=== PATIENT | female | born 1955 | race American Indian/Alaskan Native ===

== ENCOUNTER 2021-09-18 17:01 | Emergency (ER) | payer MEDICARE ==
[2021-09-18 18:11] LABS: Basophils # (Auto) 0.1 K/mm3 (0.0-0.1); Basophils % (Auto) 0.9 % (0.0-1.8); Eosinophils # (Auto) 0.1 K/mm3 (0.0-0.4); Eosinophils % (Auto) 1.3 % (0.0-4.3); Hematocrit 39.8 % (30.3-42.9); Hemoglobin 13.4 gm/dl (10.1-14.3); Lymphocytes # (Auto) 2.5 K/mm3 (1.2-5.4); Lymphocytes % (Auto) 36.4 % (13.4-35.0); Mean Corpuscular HGB Conc 34 % (30-34); Mean Corpuscular Volume 87 fl (79-97); Monocytes # (Auto) 0.5 K/mm3 (0.0-0.8); Platelet Count 240 K/mm3 (140-440); Red Blood Count 4.57 M/mm3 (3.65-5.03)
--- NOTE | 2021-09-18 18:20 | Emergency Department Report ---
HPI - General Chief Complaint: Dizziness Time Seen by Provider: 09/18/21 17:34 - HPI HPI: Room 36 The patient is a 66-year-old female present with a chief complaint of muscle spasms, dark urine, pain in kidney and headache. The patient states for the p ast 2 to 3 weeks she has had intermittent spasms in her bilateral flanks and abdomen. Patient also complains of spasms in both of her legs. Patient states she has noticed decreased urinary output for the past 2 days and for the past 3 nights she noticed her urine has been very dark. Patient denies dysuria nausea or vomiting. Patient denies history of fever. Patient states she has had a headache intermittently for the past 2 to 3 weeks as well. The patient drove herself to the emergency department and there are no visitors present ED Past Medical Hx - Past Medical History Hx Hypertension: Yes Hx GERD: Yes Hx Arthritis: Yes - Surgical History Hx Cholecystectomy: Yes (2002) Additional Surgical History: tubal ligation- 1985, Left knee replacement - Family History Family history: no significant - Social History Smoking Status: Former Smoker (None x8 years) Substance Use Type: None (Denies illicit drug use), Prescribed - Medications Home Medications: Home Medications Medication Instructions Recorded Confirmed Last Taken Type lisinopriL [Zestril TAB] 20 mg PO DAILY 01/24/15 01/24/15 Unknown History Cyclobenzaprine [Flexeril] 10 mg PO TID PRN #15 tablet 01/02/17 Unknown Rx Cyclobenzaprine [Flexeril] 10 mg PO TID PRN #14 tablet 09/19/21 Unknown Rx HYDROcodone/APAP 5-325 [[place] 1 - 2 each PO Q6HR PRN #10 tablet 09/19/21 Unknown Rx 5/325] ED Review of Systems ROS: Stated complaint: DARK URINE, FATIGUED,HEADACHE, Other details as noted in HPI Constitutional: malaise. denies: fever Eyes: denies: eye pain ENT: denies: throat pain Respiratory: no symptoms reported Cardiovascular: denies: chest pain Endocrine: no symptoms reported Gastrointestinal: abdominal pain. denies: nausea, vomiting Genitourinary: denies: dysuria Musculoskeletal: back pain Neurological: headache Physical Exam - Physical Exam Vital Signs: Vital Signs 09/18/21 09/18/21 17:04 17:09 Temperature 98.6 F Pulse Rate 89 Respiratory 24 Rate Blood Pressure 134/66 [Right] O2 Sat by Pulse 98 Oximetry Physical Exam: GENERAL: The patient is well-developed well-nourished female sitting on stretcher not appearing to be in acute distress. [] HEENT: Normocephalic. Atraumatic. Extraocular motions are intact. Patient has moist mucous membranes. NECK: Supple. No meningitic signs are noted. There is no adenopathy noted. Trach in place CHEST/LUNGS: Clear to auscultation. There is no respiratory distress noted. HEART/CARDIOVASCULAR: Regular. There is no tachycardia. There is no gallop rub or murmur. ABDOMEN: Abdomen is soft, with discomfort to palpation in the left upper quadrant and right upper quadrant. Patient has normal bowel sounds. There is no abdominal distention. SKIN: There is no rash. There is no edema. There is no diaphoresis. NEURO: The patient is awake, alert, and oriented. The patient is cooperative. The patient has no focal neurologic deficits. The patient has normal speech. Cranial nerves II through XII grossly intact. GCS 15 MUSCULOSKELETAL: There is no evidence of acute injury. ED Course Vital Signs 09/18/21 09/18/21 17:04 17:09 Temperature 98.6 F Pulse Rate 89 Respiratory 24 Rate Blood Pressure 134/66 [Right] O2 Sat by Pulse 98 Oximetry ED Medical Decision Making - Lab Data Result diagrams: 09/18/21 18:00 09/18/21 18:00 Laboratory Tests 09/18/21 09/18/21 09/18/21 18:00 18:00 18:00 WBC 7.0 RBC 4.57 Hgb 13.4 Hct 39.8 MCV 87 MCH 29 MCHC 34 RDW 15.0 Plt Count 240 Lymph % (Auto) 36.4 H Stanton % (Auto) 7.0 Eos % (Auto) 1.3 Baso % (Auto) 0.9 Lymph # (Auto) 2.5 Stanton # (Auto) 0.5 Eos # (Auto) 0.1 Baso # (Auto) 0.1 Seg Neutrophils % 54.4 Seg Neutrophils # 3.8 Sodium 141 Potassium 3.9 Chloride 102.5 Carbon Dioxide 25 Anion Gap 17 BUN 8 Creatinine 0.8 Estimated GFR > 60 BUN/Creatinine Ratio 10 Glucose 100 Calcium 7.9 L Total Bilirubin 0.70 AST 13 ALT 8 Alkaline Phosphatase 110 Total Creatine Kinase 212 H Troponin T < 0.010 Total Protein 8.0 Albumin 3.9 Albumin/Globulin Ratio 1.0 Lipase Urine Color Urine Turbidity Urine pH Ur Specific [place] Urine Protein Urine Glucose (UA) Urine Ketones Urine Blood Urine Nitrite Urine Bilirubin Urine Urobilinogen Ur Leukocyte Esterase Urine WBC (Auto) Urine RBC (Auto) U Epithel Cells (Auto) Urine Mucus 09/18/21 09/18/21 18:00 21:45 WBC RBC Hgb Hct MCV MCH MCHC RDW Plt Count Lymph % (Auto) Stanton % (Auto) Eos % (Auto) Baso % (Auto) Lymph # (Auto) Stanton # (Auto) Eos # (Auto) Baso # (Auto) Seg Neutrophils % Seg Neutrophils # Sodium Potassium Chloride Carbon Dioxide Anion Gap BUN Creatinine Estimated GFR BUN/Creatinine Ratio Glucose Calcium Total Bilirubin AST ALT Alkaline Phosphatase Total Creatine Kinase Troponin T Total Protein Albumin Albumin/Globulin Ratio Lipase 43 Urine Color Yellow Urine Turbidity Clear Urine pH 5.0 Ur Specific [place] 1.023 Urine Protein 30 mg/dl Urine Glucose (UA) Neg Urine Ketones Neg Urine Blood Sm Urine Nitrite Neg Urine Bilirubin Neg Urine Urobilinogen 2.0 Ur Leukocyte Esterase Neg Urine WBC (Auto) 3.0 Urine RBC (Auto) 2.0 U Epithel Cells (Auto) 2.0 Urine Mucus Few - EKG Data -: EKG Interpreted by Fl EKG shows normal: sinus rhythm Rate: normal - EKG Data When compared to previous EKG there are: previous EKG unavailable Interpretation: other (No ischemic changes seen) - Radiology Data Radiology results: report reviewed (CT abdomen pelvis), image reviewed (CT abdomen pelvis) [place] [address] Cat Scan Report Signed Patient: MEHRAN FREEMAN MR#: [id number] : 1955 Acct:[id number] Age/Sex: 66 / F ADM Date: 09/18/21 Loc: ED Attending Dr: Ordering Physician: LUCINDA MOSER MD Date of Service: 09/18/21 Procedure(s): CT abdomen pelvis w con Accession Number(s): [id number] cc: LUCINDA MOSER MD CT ABDOMEN AND PELVIS WITH IV CONTRAST INDICATION: Bilateral upper quadrant abdominal pain. COMPARISON: None available. TECHNIQUE: All CT scans at this facility use dose modulation, automated exposure control, iterative reconstruction or weight based dosing, when appropriate, to reduce radiation dose to as low as reasonably achievable. FINDINGS: Lung Bases: No significant abnormality. Skeletal System: No acute abnormality. ABDOMEN: Liver: There is a subtle ill-defined 1.3 cm hypodensity in the right hepatic lobe on axial T2. This is nonspecific but could be a hemangioma. The liver is otherwise unremarkable. Gallbladder: Removed. B ile Ducts: No significant abnormality. Adrenals: No significant abnormality. Right Kidney: No significant abnormality. Left Kidney: No significant abnormality. Pancreas: No significant abnormality. Spleen: No significant abnormality. Upper GI tract: No significant abnormality. Lymph Nodes: No signif icant adenopathy. Aorta: No significant abnormality. Additional Findings: No significant abnormality. PELVIS: Colon: No acute abnormality. Diverticulosis is noted. Urinary Bladder and Distal Ureters: No significant abnormality. Appendix: No significant abnormality. Lymph Nodes: No significant adenopathy. Additional Findings: Calcified uterine fibroid is noted. IMPRESSION: 1. No acute process in the abdomen or pelvis. 2. Incidental findings, as above. Signer Name: Jose F Keller MD Signed: 09/19/2021 2:02 AM Workstation Name: [id number] Transcribed By: SW Dictated By: Jose F Keller MD Electronically Authenticated By: Jose F Keller MD Signed Date/Time: 09/19/21201 DD/ 8 TD/TT: Print - Differential Diagnosis Rhabdomyolysis, intracranial mass, ICH, acute renal failure, UTI Critical care attestation.: If time is entered above; I have spent that time in minutes in the direct care of this critically ill patient, excluding procedure time. ED Disposition Clinical Impression: Cramps, muscle, general, Acute abdominal pain, Headache Disposition: 01 HOME / SELF CARE / HOMELESS Is pt being admited?: No Does the pt Need Aspirin: No Condition: Stable Instructions: Muscle Cramps and Spasms, [id number], Abdominal Pain, Adult, [id number] Additional Instructions: Return to the emergency department should you develop worsening symptoms, inability to tolerate food or liquids, high fever or any other concerns Prescriptions: Cyclobenzaprine [Flexeril] 10 mg PO TID PRN #14 tablet PRN Reason: Muscle Spasm HYDROcodone/APAP 5-325 [[place] 5/325] 1 - 2 each PO Q6HR PRN #10 tablet PRN Reason: Pain Referrals: PRIMARY CARE, [Primary Care Provider] - 3-5 Days ELEONORA INFANTE MD [Staff Physician] - 3-5 Days
[2021-09-18 18:39] LABS: Alanine Aminotransferase 8 units/L (7-56); Albumin 3.9 g/dL (3.9-5); BUN/Creatinine Ratio 10; Blood Urea Nitrogen 8 mg/dL (7-17); Calcium 7.9 mg/dL (8.4-10.2); Hemolysis Index 7
[2021-09-18] MEDS ORDERED: CALCIUM GLUCONATE 1,000 MG in SODIUM CHLORIDE 0.9% 100 ML IV ONE (19:48)
[2021-09-18] MEDS ORDERED: IBUPROFEN 800 MG TAB PO ONE (21:31)
[2021-09-18 22:02] LABS: Bilirubin,Urine NEG (Negative); Blood,Urine SM (Negative); Color,Urine Yellow (Yellow); Mucus,Urine FEW /HPF
[2021-09-19] MEDS ORDERED: HYDROmorphone 1 MG/1 ML INJ IV PRN (00:11)
--- NOTE | 2021-09-19 02:04 | Cat Scan Report ---
CT HEAD WITHOUT CONTRAST INDICATION: Headache. TECHNIQUE: All CT scans at this location are performed using CT dose reduction for ALARA by means of automated e xposure control. COMPARISON: None available. FINDINGS: HEMORRHAGE: None. EXTRA-AXIAL SPACES: Normal in size and morphology for the patient's age. VENTRICULAR SYSTEM: Normal in size and morphology for the patient's age. BRAIN PARENCHYMA: No acute findings. MIDLINE SHIFT OR HERNIATION: None. ORBITS: Normal as visualized. SOFT TISSUES OF HEAD: Normal. CALVARIUM: Normal. VISUALIZED PARANASAL SINUSES AND MASTOID AIR CELLS: Clear. ADDITIONAL FINDINGS: None. IMPRESSION: 1. No acute intracranial abnormality. Signer Name: Jose F Keller MD Signed: 09/19/2021 1:59 AM Workstation Name: [id number]
--- NOTE | 2021-09-19 02:07 | Cat Scan Report ---
CT ABDOMEN AND PELVIS WITH IV CONTRAST INDICATION: Bilateral upper quadrant abdominal pain. COMPARISON: None available. TECHNIQUE: All CT scans at this facility use dose modulation, automated exposure control, iterative reconstructi on or weight based dosing, when appropriate, to reduce radiation dose to as low as reasonably achieva ble. FINDINGS: Lung Bases: No significant abnormality. Skeletal System: No acute abnormality. ABDOMEN: Liver: There is a subtle ill-defined 1.3 cm hypodensity in the right hepatic lobe on axial T2. This i s nonspecific but could be a hemangioma. The liver is otherwise unremarkable. Gallbladder: Removed. Bile Ducts: No significant abnormality. Adrenals: No significant abnormality. Right Kidney: No significant abnormality. Left Kidney: No significant abnormality. Pancreas: No significant abnormality. Spleen: No significant abnormality. Upper GI tract: No significant abnormality. Lymph Nodes: No significant adenopathy. Aorta: No significant abnormality. Additional Findings: No significant abnormality. PELVIS: Colon: No acute abnormality. Diverticulosis is noted. Urinary Bladder and Distal Ureters: No significant abnormality. Appendix: No significant abnormality. Lymph Nodes: No significant adenopathy. Additional Findings: Calcified uterine fibroid is noted. IMPRESSION: 1. No acute process in the abdomen or pelvis. 2. Incidental findings, as above. Signer Name: Jose F Keller MD Signed: 09/19/2021 2:02 AM Workstation Name: [email or web address]
[2021-09-19 02:20] VITALS: BP 137/63
--- NOTE | 2021-09-19 09:33 | Electrocardiograph Report ---
[facility] Test Date: 2021-09-19 Test Time: 01:00:05 Pat Name: MEHRAN FREEMAN Department: Room: Gender: F [employer] Specialist: [employer] : 1955 Requested By: JULIO YIN Order Number: [id number] Reading MD: Jeremy Maurer Measurements Intervals [place] Rate: 72 P: 60 W[place]: 163 QRS: -26 QRSD: 89 T: 39 QT: 415 QTc: 454 Interpretive Statements Sinus rhythm Probable left atrial enlargement nonspecific st-t poor r wave progression No previous ECG available for comparison Electronically Signed On 09-19-2021 9:33:46 EDT by Jeremy Maurer
== END 2021-09-19 02:17 | disposition home or self-care (01) ==
LOC: ED 17:01
DX: R51.9 Headache, unspecified (principal); R25.2 Cramp and spasm; R10.9 Unspecified abdominal pain; I10 Essential (primary) hypertension; K21.9 Gastro-esophageal reflux disease without esophagitis; M19.90 Unspecified osteoarthritis, unspecified site; Z98.51 Tubal ligation status; Z98.890 Other specified postprocedural states; Z87.891 Personal history of nicotine dependence
CPT/HCPCS: 36415; 70450; 74177; 80053; 81001; 82550; 83690; 84484; 85025; 93005; 96365; 96366; 96375; 99284; J0610; J1170; Q9967

== ENCOUNTER 2022-02-10 23:06 | Emergency (ER) | payer MEDICARE ==
[2022-02-10 23:13] VITALS: BP 167/63
--- NOTE | 2022-02-11 04:03 | XRay Report ---
CHEST 2 VIEWS INDICATION / CLINICAL INFORMATION: cough and mucus plugs. COMPARISON: Chest x-ray 03/23/2013 FINDINGS: SUPPORT DEVICES: Tracheostomy tube is satisfactory in position. HEART / MEDIASTINUM: No significant abnormality. LUNGS / PLEURA: No significant pulmonary or pleural abnormality. No pneumothorax. BONES: No significant osseous abnormality. ADDITIONAL FINDINGS: No significant additional findings. IMPRESSION: 1. No active cardiopulmonary disease. Signer Name: Fer Sanon II, MD Signed: 02/11/2022 3:59 AM Workstation Name: [id number]
--- NOTE | 2022-02-11 04:57 | Emergency Department Report ---
ED General Adult HPI - General Chief complaint: Upper Respiratory Infection Stated complaint: PAIN IN LUNGS/THICK MUCUS Time Seen by Provider: 02/11/22 03:23 Source: patient Mode of arrival: Ambulatory Limitations: No Limitations - History of Present Illness Initial comments: 66-year-old female with past medical history pulmonary disease requiring trach presents emerged department complaining of having mucous plugs has been progressively worsening since the onset a few weeks ago. [id number] medication does help to ease some of the plugging but is becoming more persistent. No hemoptysis no hematemesis hematochezia she is currently taking Augmentin for a preventative lung infection measure she reports no fever, chills, sweats. -: Gradual Location: chest Quality: dull Improves with: none Worsens with: none Associated Symptoms: denies other symptoms Treatments Prior to Arrival: none - Related Data Home Medications Medication Instructions Recorded Confirmed Last Taken lisinopriL [Zestril TAB] 20 mg PO DAILY 01/24/15 01/24/15 Unknown Previous Rx's Medication Instructions Recorded Last Taken Type Cyclobenzaprine [Flexeril] 10 mg PO TID PRN #15 tablet 01/02/17 Unknown Rx Cyclobenzaprine [Flexeril] 10 mg PO TID PRN #14 tablet 09/19/21 Unknown Rx HYDROcodone/APAP 5-325 [[place] 1 - 2 each PO Q6HR PRN #10 tablet 09/19/21 Unknown Rx 5/325] Dornase Jalen [Pulmozyme] 1 mg IH DAILY #14 ml 02/11/22 Unknown Rx Allergies Allergy/AdvReac Type Severity Reaction Status Date / Time No Known Allergies Allergy Verified 01/24/15 02:38 ED Review of Systems ROS: Stated complaint: PAIN IN LUNGS/THICK MUCUS Other details as noted in HPI Comment: All other systems reviewed and negative ED Past Medical Hx - Past Medical History Hx Hypertension: Yes Hx GERD: Yes Hx Arthritis: Yes - Surgical History Hx Cholecystectomy: Yes (2002) Additional Surgical History: tubal ligation- 1985, Left knee replacement - Social History Smoking Status: Former Smoker (None x8 years) Substance Use Type: None (Denies illicit drug use), Prescribed - Medications Home Medications: Home Medications Medication Instructions Recorded Confirmed Last Taken Type lisinopriL [Zestril TAB] 20 mg PO DAILY 01/24/15 01/24/15 Unknown History Cyclobenzaprine [Flexeril] 10 mg PO TID PRN #15 tablet 01/02/17 Unknown Rx Cyclobenzaprine [Flexeril] 10 mg PO TID PRN #14 tablet 09/19/21 Unknown Rx HYDROcodone/APAP 5-325 [[place] 1 - 2 each PO Q6HR PRN #10 tablet 09/19/21 Unknown Rx 5/325] Dornase Jalen [Pulmozyme] 1 mg IH DAILY #14 ml 02/11/22 Unknown Rx ED Physical Exam - General Limitations: No Limitations General appearance: alert, in no apparent distress - Head Head exam: Present: atraumatic, normocephalic - Eye Eye exam: Present: normal appearance, PERRL, EOMI Pupils: Present: normal accommodation - ENT ENT exam: Present: normal exam, mucous membranes moist, TM's normal bilaterally - Neck Neck exam: Present: normal inspection - Respiratory Respiratory exam: Present: normal lung sounds bilaterally. Absent: respiratory distress - Cardiovascular Cardiovascular Exam: Present: regular rate, normal rhythm. Absent: systolic murmur, diastolic murmur, rubs, gallop - GI/Abdominal GI/Abdominal exam: Present: soft, normal bowel sounds - Extremities Exam Extremities exam: Present: normal inspection - Back Exam Back exam: Present: normal inspection - Neurological Exam Neurological exam: Present: alert, oriented X3 - Psychiatric Psychiatric exam: Present: normal affect, normal mood - Skin Skin exam: Present: warm, dry, intact, normal color. Absent: rash ED Course Vital Signs 02/10/22 23:10 Temperature 98.6 F Pulse Rate 80 Respiratory 24 Rate Blood Pressure 167/63 O2 Sat by Pulse 98 Oximetry Critical care attestation.: If time is entered above; I have spent that time in minutes in the direct care of this critically ill patient, excluding procedure time. ED Disposition Disposition: HOME / SELF CARE / HOMELESS Condition: Stable Instructions: Cool Mist Vaporizer, Cough, Adult Prescriptions: Dornase Jalen [Pulmozyme] 1 mg IH DAILY #14 ml Referrals: DEVIN CHAVEZ NP [Primary Care Provider] - 3-5 Days
== END 2022-02-11 04:59 | disposition home or self-care (01) ==
LOC: ED 23:06
DX: R07.1 Chest pain on breathing (principal); J98.09 Other diseases of bronchus, not elsewhere classified; I10 Essential (primary) hypertension; K21.9 Gastro-esophageal reflux disease without esophagitis; M19.90 Unspecified osteoarthritis, unspecified site; Z90.49 Acquired absence of other specified parts of digestive tract; Z87.891 Personal history of nicotine dependence; X58.XXXA Exposure to other specified factors, initial encounter; Y93.89 Activity, other specified; Y92.89 Other specified places as the place of occurrence of the external cause; Y99.8 Other external cause status
CPT/HCPCS: 71046; 99283

== ENCOUNTER 2022-05-08 14:57 | Emergency (ER) | payer MEDICARE ==
[2022-05-08] MEDS ORDERED: dexAMETHasone 4 MG/ML VIAL IM ONE (21:59)
--- NOTE | 2022-05-09 00:06 | Emergency Department Report ---
ED General Adult HPI - General Chief complaint: Pain General Stated complaint: MUSCLE PAIN Time Seen by Provider: 05/08/22 21:59 Source: patient Mode of arrival: Ambulatory Limitations: No Limitations - History of Present Illness Initial comments: 67-year-old female with osteoarthritis for the last 2 years presents emerged department complaining of continued continued pain or doorstop infection that worsened last night and is on reports from the osteoarthritis pain gets worse she required a cortisone shot and presents emerged department seeking steroids. Reports no fever, chills, sweats. No chest pain palpitation. No nausea no vomiting, no hemoptysis no hematemesis hematochezia. She reports no traumatic events. No numbness or tingling to the lower extremities. No headaches no blurred vision. -: Gradual, year(s) Location: upper extremity, lower extremity Radiation: non-radiation Quality: aching, dull Consistency: constant Improves with: none Worsens with: none Associated Symptoms: denies other symptoms Treatments Prior to Arrival: none - Related Data Home Medications Medication Instructions Recorded Confirmed Last Taken lisinopriL [Zestril TAB] 20 mg PO DAILY 01/24/15 01/24/15 Unknown Previous Rx's Medication Instructions Recorded Last Taken Type Cyclobenzaprine [Flexeril] 10 mg PO TID PRN #15 tablet 01/02/17 Unknown Rx Cyclobenzaprine [Flexeril] 10 mg PO TID PRN #14 tablet 09/19/21 Unknown Rx HYDROcodone/APAP 5-325 [[place] 1 - 2 each PO Q6HR PRN #10 tablet 09/19/21 Unknown Rx 5/325] Dornase Jalen [Pulmozyme] 1 mg IH DAILY #14 ml 02/11/22 Unknown Rx predniSONE [Deltasone] 20 mg PO QDAY #7 tab 05/09/22 Unknown Rx Allergies Allergy/AdvReac Type Severity Reaction Status Date / Time No Known Allergies Allergy Verified 01/24/15 02:38 ED Review of Systems ROS: Stated complaint: MUSCLE PAIN Other details as noted in HPI Comment: All other systems reviewed and negative ED Past Medical Hx - Past Medical History Hx Hypertension: Yes Hx GERD: Yes Hx Arthritis: Yes - Surgical History Hx Cholecystectomy: Yes (2002) Additional Surgical History: tubal ligation- 1985, Left knee replacement - Social History Smoking Status: Former Smoker (None x8 years) Substance Use Type: None (Denies illicit drug use), Prescribed - Medications Home Medications: Home Medications Medication Instructions Recorded Confirmed Last Taken Type lisinopriL [Zestril TAB] 20 mg PO DAILY 01/24/15 01/24/15 Unknown History Cyclobenzaprine [Flexeril] 10 mg PO TID PRN #15 tablet 01/02/17 Unknown Rx Cyclobenzaprine [Flexeril] 10 mg PO TID PRN #14 tablet 09/19/21 Unknown Rx HYDROcodone/APAP 5-325 [[place] 1 - 2 each PO Q6HR PRN #10 tablet 09/19/21 Unknown Rx 5/325] Dornase Jalen [Pulmozyme] 1 mg IH DAILY #14 ml 02/11/22 Unknown Rx predniSONE [Deltasone] 20 mg PO QDAY #7 tab 05/09/22 Unknown Rx ED Physical Exam - General Limitations: No Limitations General appearance: alert, in no apparent distress - Head Head exam: Present: atraumatic, normocephalic - Eye Eye exam: Present: normal appearance, PERRL, EOMI Pupils: Present: normal accommodation - ENT ENT exam: Present: mucous membranes moist - Neck Neck exam: Present: normal inspection - Respiratory Respiratory exam: Present: normal lung sounds bilaterally. Absent: respiratory distress - Cardiovascular Cardiovascular Exam: Present: regular rate, normal rhythm. Absent: systolic murmur, diastolic murmur, rubs, gallop - GI/Abdominal GI/Abdominal exam: Present: soft, normal bowel sounds - Extremities Exam Extremities exam: Present: normal inspection, tenderness, normal capillary refill, joint swelling. Absent: calf tenderness - Back Exam Back exam: Present: normal inspection, paraspinal tenderness. Absent: CVA tenderness (R), CVA tenderness (L) - Neurological Exam Neurological exam: Present: alert, oriented X3 - Psychiatric Psychiatric exam: Present: normal affect, normal mood - Skin Skin exam: Present: warm, dry, intact, normal color. Absent: rash ED Course Vital Signs 05/08/22 16:00 Temperature 98.4 F Pulse Rate 85 Respiratory 18 Rate Blood Pressure 158/64 O2 Sat by Pulse 95 Oximetry Critical care attestation.: If time is entered above; I have spent that time in minutes in the direct care of this critically ill patient, excluding procedure time. ED Disposition Clinical Impression: Arthralgia Disposition: 01 HOME / SELF CARE / HOMELESS Is pt being admited?: No Does the pt Need Aspirin: No Condition: Stable Instructions: Joint Pain, How to Use Cold Therapy Prescriptions: predniSONE [Deltasone] 20 mg PO QDAY #7 tab Referrals: [facility] [Provider Group] - 3-5 Days
[2022-05-09 00:36] VITALS: BP 154/69
== END 2022-05-09 00:36 | disposition home or self-care (01) ==
LOC: ED 14:57
DX: M25.50 Pain in unspecified joint (principal); Z87.891 Personal history of nicotine dependence; I10 Essential (primary) hypertension
CPT/HCPCS: 96372; 99282; J1100